=== PATIENT | female | born 1985 | race African-American/Black ===

== ENCOUNTER 2022-07-21 00:09 | Emergency (ER) | payer SELFPAY ==
[2022-07-21] MEDS ORDERED: Ketorolac Tromethamine 30 MG/ML VIAL ONE (01:02)
[2022-07-21 01:27] LABS: #Basophils 0.1 10x3/uL (0.0-0.2); #Eosinphils 0.1 10x3/uL (0.0-0.5); #Monocytes 0.5 10x3/uL (0.0-1.1); %Basophils 0.6 % (0.0-2.0); %Eosinophils 0.6 % (0.0-6.0); %Lymphocytes 17.9 % (18.0-47.0); %Monocytes 6.1 % (0.0-10.0); %Neutrophils 74.5 % (40.0-75.0); Mean Corpuscular HGB CONC 30.4 g/dL (32.0-36.0); Mean Corpuscular Hemoglobin 20.9 pg (27.0-33.0); Mean Corpuscular Volume 68.7 fl (81.6-98.3); Platelet Count 235 10x3/uL (150-450); RBC Distribution Width 18.1 % (11.5-14.5); Red Blood Cell (RBC) Count 4.79 10x6/uL (3.90-5.03)
[2022-07-21 01:28] LABS: BHCG - Serum Negative (NEGATIVE); Pregs Control Background? CLEAR/WHITE (CLR/WHITE); Pregs Control Bar Appear? YES (CONTROL BAR)
[2022-07-21 01:33] LABS: ALT (SGPT) 14 U/L (8-55); AST (SGOT) 15 U/L (5-34); Albumin 4.2 g/dL (3.5-5.0); Alkaline Phosphatase 55 U/L (40-110); Anion Gap 12 mmol/L (10-20); BUN (Urea Nitrogen) 8 mg/dL (7.0-18.7); Bilirubin, Total 0.4 mg/dL (0.2-1.2); Calc. Creatinine Clearance 0 mL/min (70-130); Calcium 9.4 mg/dL (7.8-10.44); Carbon Dioxide 21 mmol/L (22-29); Chloride 105 mmol/L (98-107); Estimated GFR 90; Globulin 4.3 g/dL (2.4-3.5); Glucose 114 mg/dL (70-105); Lipase 30 U/L (8-78); Potassium 3.4 mmol/L (3.5-5.1); Protein, Total 8.5 g/dL (6.0-8.3); Sodium 135 mmol/L (136-145)
[2022-07-21] MEDS ORDERED: Acetaminophen 500 MG TAB ONE (01:36)
[2022-07-21] MEDS ORDERED: Ondansetron PF 4 MG/2 ML Vial ONE (01:37)
[2022-07-21 02:19] LABS: Anisocytosis SLIGHT = 6-15 cells (100X) (0-5/hpf); Microcytosis MODERATE=15-30 cells (100X) (0-5/hpf); Platelet Morphology Comment Appears Adequate
[2022-07-21] MEDS ORDERED: Iopamidol 300 61% 100 ML VIAL FS ONE (13:17)
== END 2022-07-21 04:14 | disposition home or self-care (01) ==
LOC: CSHERS 00:09
DX: N92.0 Excessive and frequent menstruation with regular cycle (principal); D64.9 Anemia, unspecified
CPT/HCPCS: 36415; 74177; 80053; 83690; 84703; 85025; 96372; 96374; J1885; J2405; Q9967

== ENCOUNTER 2023-05-29 12:19 | Emergency (ER) | payer OTHER, SELFPAY ==
[2023-05-29 14:08] LABS: Bilirubin Neg (Negative); Blood, Urine 25 (Negative); Clarity Clear (Clear); Glucose, Urine (Dipstick) Normal (Negative); Ketone, Urine Negative (Negative); Leukocyte 500 (Negative); Nitrite Negative (Negative); Protein, Urine (Dipstick) 15 mg/dl (Neg-Trace); pH, Urine 6.5 (5.0-9.0)
[2023-05-29 14:12] LABS: Pregnancy Test - Urine (BHCG) Negative (Negative)
[2023-05-29 14:13] LABS: Pregu Control Background? CLEAR/WHITE (CLR/WHITE); Pregu Control Bar Appear? YES (CONTROL BAR)
[2023-05-29 14:29] LABS: Bacteria/HPF 2+ HPF (None Seen); CAUTI Indications for Culture Pregnancy; Mucous/LPF 3+ LPF (<2+); RBC/HPF 0-3 HPF (0-3)
[2023-05-29 14:30] LABS: Urine Culture Reflex Yes Yes
== END 2023-05-29 14:10 | disposition home or self-care (01) ==
LOC: CSHERS 12:19
DX: N76.0 Acute vaginitis (principal); N39.0 Urinary tract infection, site not specified; B34.9 Viral infection, unspecified
CPT/HCPCS: 81001; 81025; 87077; 87086; 99284